=== PATIENT | male | born 1995 | race African-American/Black ===

== ENCOUNTER 2018-09-27 23:34 | Emergency (ER) | payer SELFPAY ==
[2018-09-28] MEDS ORDERED: QUETIAPINE FUMARATE 100 MG TABLET PO ONE (00:45)
--- NOTE | 2018-09-28 00:47 | ER Document Report ---
ED General - General Chief Complaint: Suicidal Ideation Stated Complaint: OTHER Time Seen by Provider: 09/27/18 23:55 Notes: Patient is a 23-year-old male without chronic medical problems, presents with complaints of feeling like others can hear his internal dialogue and that he may be having auditory hallucinations. The patient also reports that he has been having suicidal thoughts with a plan to shoot himself but does not currently have access to a firearm. Patient reports that he was seen in the [place] emergency department several months ago, does not recall with what he was diagnosed but was treated with Seroquel and did have improvement of the symptoms similar to what he is having today. He states that he only had a 1 month supply and after it ran out his symptoms did recur and he has not sought follow-up since that time. He denies any alcohol or drug abuse. He denies any prior suicide attempts or psychiatric hospitalizations. Denies any acute medical concerns. He is presenting with his mother. Nothing has improved or worsened his current symptoms since onset. TRAVEL OUTSIDE OF THE [place] IN LAST 30 DAYS: No - Related Data Allergies/Adverse Reactions: No Known Allergies Allergy (Verified 11/15/13 17:41) Past Medical History - General Information source: Patient - Social History Smoking Status: Current Every Day Smoker Frequency of alcohol use: Rare Drug Abuse: None Lives with: Family Family History: Reviewed & Not Pertinent Patient has suicidal ideation: Yes Patient has homicidal ideation: No Renal/ Medical History: Denies: Hx Peritoneal Dialysis - Immunizations Immunizations up to date: Yes Hx Diphtheria, Pertussis, Tetanus Vaccination: Yes Review of Systems - Review of Systems Notes: Constitutional: Negative for fever. HENT: Negative for sore throat. Eyes: Negative for visual changes. Cardiovascular: Negative for chest pain. Respiratory: Negative for shortness of breath. Gastrointestinal: Negative for abdominal pain, vomiting or diarrhea. Genitourinary: Negative for dysuria. Musculoskeletal: Negative for back pain. Skin: Negative for rash. Neurological: Negative for headaches, weakness or numbness. 10 point ROS negative except as marked above and in HPI. Physical Exam - Vital signs Vitals: Temp Pulse Resp BP Pulse Ox 98.1 F 65 16 128/76 H 98 09/27/18 23:42 09/27/18 23:42 09/27/18 23:42 09/27/18 23:42 09/27/18 23:42 Interpretation: Normal Notes: PHYSICAL EXAMINATION: GENERAL: Well-appearing, well-nourished and in no acute distress. HEAD: Atraumatic, normocephalic. EYES: Pupils equal round and reactive to light, extraocular movements intact, sclera anicteric, conjunctiva are normal. ENT: nares patent, oropharynx clear without exudates. Moist mucous membranes. NECK: Normal range of motion, supple without lymphadenopathy LUNGS: Breath sounds clear to auscultation bilaterally and equal. No wheezes rales or rhonchi. HEART: Regular rate and rhythm without murmurs ABDOMEN: Soft, nontender, normoactive bowel sounds. No guarding, no rebound. No masses appreciated. EXTREMITIES: Normal range of motion, no pitting or edema. No cyanosis. NEUROLOGICAL: No focal neurological deficits. Moves all extremities spontaneously and on command. PSYCH: Poor eye contact. Depressed mood. Appropriate insight. SKIN: Warm, Dry, normal turgor, no rashes or lesions noted. Course - Re-evaluation Re-evalutation: 09/28/18 00:46 Patient presents with paranoia about the ability of others to hear his internal thoughts, possible auditory hallucinations, suicidal ideation without a specific means of completion although does state that he has plan to do so via a firearm. Patient denies any acute medical complaints. States he was seen and treated for similar several months ago, had improvement with Seroquel and will receive a dose here in the emergency department. He has been placed on a hold as I do believe that he needs to remain in the emergency department for further evaluation. He denies acute medical complaints and is otherwise medically cleared for evaluation and disposition by [facility] in the morning. 09/28/18 03:20 Medical screening labs unremarkable. Patient is cleared for evaluation and disposition by [facility] in the morning. - Vital Signs Vital signs: Temp Pulse Resp BP Pulse Ox 98.1 F 65 16 128/76 H 98 09/27/18 23:42 09/27/18 23:42 09/27/18 23:42 09/27/18 23:42 09/27/18 23:42 - Laboratory Result Diagrams: 09/28/18 00:50 09/28/18 00:50 Laboratory results interpreted by me: 09/28/18 00:50 ALT 14 L Salicylates < 1.0 L Acetaminophen < 10 L - EKG Interpretation by Me Additional EKG results interpreted by me: 09/28/18 03:20 Sinus rhythm. Intermittent PVCs. Rate 53. No ST elevations or depressions. QTC 368. Discharge - Discharge Clinical Impression: Suicidal ideation, Auditory hallucinations Condition: Good Referrals: RADHA CHRISTENSEN PA-C [PHYSICIAN [facility] [employer]] - Follow up as needed
[2018-09-28 01:01] LABS: ABSOLUTE BASOPHILS # (AUTO) 0.1 10^3/uL (0.0-0.2); ABSOLUTE EOSINOPHILS # (AUTO) 0.4 10^3/uL (0.0-0.6); ABSOLUTE LYMPHOCYTES (AUTO) 4.3 10^3/uL (0.5-4.7); ABSOLUTE MONOCYTES (AUTO) 0.9 10^3/uL (0.1-1.4); ABSOLUTE NEUT (AUTO) 4.5 10^3/uL (1.7-8.2); BASOPHILS % (AUTO) 0.8 % (0-2); EOSINOPHILS % (AUTO) 3.8 % (0-6); HEMATOCRIT 45.2 % (37.9-51.0); HEMOGLOBIN 15.7 g/dL (13.5-17.0); LYMPHOCYTES % (AUTO) 42.5 % (13-45); MEAN CORPUSCULAR HEMOGLOBIN 32.4 pg (27.0-33.4); MEAN CORPUSCULAR HGB CONC 34.7 g/dL (32.0-36.0); MEAN CORPUSCULAR VOLUME 93 fl (80-97); MONOCYTES % (AUTO) 8.5 % (3-13); PLATELET COUNT 262 10^3/uL (150-450); RED BLOOD COUNT 4.84 10^6/uL (4.35-5.55); SEGMENTED NEUTROPHILS % (AUTO) 44.4 % (42-78); TOTAL CELLS COUNTED % (AUTO) 100 %; WHITE BLOOD COUNT 10.1 10^3/uL (4.0-10.5)
[2018-09-28 01:13] LABS: ALANINE AMINOTRANSFERASE 14 U/L (21-72); ALBUMIN 4.9 g/dL (3.5-5.0); ALKALINE PHOSPHATASE 58 U/L (38-126); ANION GAP 14 (5-19); ASPARTATE AMINO TRANSFERASE 17 U/L (17-59); BILIRUBIN,DIRECT 0.3 mg/dL (0.0-0.4); BILIRUBIN,TOTAL 1.1 mg/dL (0.2-1.3); BLOOD UREA NITROGEN 12 mg/dL (7-20); CALCIUM 9.6 mg/dL (8.4-10.2); CARBON DIOXIDE 28 mmol/L (22-30); CHLORIDE 102 mmol/L (98-107); GLUCOSE 88 mg/dL (75-110); POTASSIUM 4.2 mmol/L (3.6-5.0); SODIUM 143.5 mmol/L (137-145); TOTAL PROTEIN 7.8 g/dL (6.3-8.2)
[2018-09-28 01:14] LABS: ACETAMINOPHEN < 10 ug/mL (10-30); ALCOHOL < 10 mg/dL (NONE DETECTED); SALICYLATE < 1.0 mg/dL (2.0-20.0)
--- NOTE | 2018-09-28 07:24 | EKG REPORT ---
SEVERITY:- OTHERWISE NORMAL ECG - SINUS ARRHYTHMIA, RATE 48-60 : Confirmed by: Colton Atkinson MD 28-Sep-2018 07:23:03
[2018-09-28 07:52] LABS: APPEARANCE,URINE CLEAR; BILIRUBIN,URINE NEGATIVE (NEGATIVE); COLOR,URINE YELLOW; GLUCOSE, URINE NEGATIVE (NEGATIVE); KETONES,URINE NEGATIVE (NEGATIVE); LEUKOCYTE ESTERASE,URINE LARGE (NEGATIVE); NITRITE,URINE NEGATIVE (NEGATIVE); PROTEIN,URINE NEGATIVE (NEGATIVE); URINE SPECIFIC GRAVITY 1.011; UROBILINOGEN,URINE NEGATIVE mg/dL (<2.0)
[2018-09-28 08:16] LABS: URINE BARBITURATES SCREEN NEGATIVE; URINE BENZODIAZEPINES SCREEN NEGATIVE; URINE MARIJUANA (THC) SCREEN UNCONFIRMED POSITIVE; URINE METHADONE SCREEN NEGATIVE; URINE PHENCYCLIDINE SCREEN NEGATIVE
[2018-09-28 08:17] LABS: URINE AMPHETAMINES SCREEN NEGATIVE
[2018-09-28 09:11] LABS: URINE COCAINE SCREEN NEGATIVE
--- NOTE | 2018-09-28 10:23 | ER Document Report ---
Doctor's Note Notes: 09/28/18 10:22 Rounds: Patient's chart reviewed and patient interviewed. Patient's being evaluated for suicidal thoughts which he says he does not have this morning. Says he also was hearing voices and expressed paranoid thoughts. Vital signs have been normal. Lab showed positive leukocyte esterase and a urine culture has been ordered. Patient appears to be medically stable for transfer or discharge. Leonora Bolanos MD 09/28/18 12:12 Patient is complaining of his right eye bothering him. He says it has been this way since yesterday afternoon. Does not recall getting anything in his eye. Has been rubbing at it a lot. Denies any pain of the eyeball or on the surface of the eye. It has been draining. No fever. No allergies. Patient has injected conjunctiva of the right eye. Clear tearing discharge, but no purulent material noted. Pupils equal round react to light. Palpation of the right eyeball does not reveal any excessive firmness or tenderness to palpation. Patient probably has a conjunctivitis. Going to put him on Polytrim ophthalmic drops, 2 drops every 4 hours while awake. Leonora Bolanos MD
[2018-09-28] MEDS ORDERED: BUSPIRONE HCL 10 MG TABLET PO ONE (10:43)
[2018-09-28] MEDS ORDERED: VENLAFAXINE HCL 37.5 MG CAP.SR.24H PO ONE (10:43)
--- NOTE | 2018-09-28 11:36 | PSYCHOLOGICAL NOTE ---
Psych Note - Psych Note Date seen by psych provider: 09/28/18 Time seen by psych provider: 08:10 Psych Note: Reason for Consult: hallucinations and suicidal ideation Patient is a 23-year-old male without chronic medical problems, presents with complaints of feeling like others can hear his internal dialogue and that he may be having auditory hallucinations. Patient disclosed he arrived to [facility] ED via his mother because he was having thoughts of suicide. He states that he is having those thoughts because he hears voices in his head for "the last week or so." He reports that he hears the voices in his head and it is his own voice. He discloses that most the time is repeating conversations that he previously had, a song or secrets. He reports he is always worried that people can hear his thoughts. He reports that this is happened approximately once before about a year ago. He disclosed that he went to the emergency room and [place] and was given medication however confirms that he did not follow-up with outpatient services and since he did not have a refill did not continue taking medication. Patient is alert and orientated to person, place, time and circumstance. Mood and affect is flat. Patient openly engaged with clinician. Patient endorses passive suicidal ideation i.e. no plans means or intent. Patient denies homicidal ideation. Patient reports concerns of other people hearing his thoughts. Patient also discloses concerns of possible auditory hallucinations however patient is not demonstrating any behaviors indicating he is responding to internal stimuli i.e. organized linear thought processes, good eye contact, and normal conversational speech. Intellectual abilities appear to be average range. Attention and concentration are fair. Insight, judgment, impulse control are fair. Behavior health team contacted [facility] to identify previous medications (pharmacy provided by patient); there are no records of the patient picking up any medications from any [facility] in the [place]. Medication recommendations per [facility]'s contracted psychiatrist Dr. Saida FLORES are as follows Effexor 37.5 mg daily BuSpar 5 mg every morning 10 mg nightly Diagnosis 300.3 (F42) unspecified obsessive-compulsive and related disorder 311 (F32.9) unspecified depression Impression\\plan: Patient is recommended for overnight mental health observation to start medications. Patient does not meet IVC criteria per [place] GS 122C. Patient presents with passive suicidal ideation i.e. no plans means or intent. Patient discloses concern of possible auditory hallucinations however patient's descriptions are not congruent with known manifestations. Patient symptoms are congruent with obsessive and intrusive thoughts. Medication recommendations have been provided. Patient is recommended to follow-up with outpatient mental health services for one-on-one therapeutic interventions to develop coping skills and improve self esteem. Patient will be re-evaluated with probable discharge in the morning. Dr. Clarke was consulted and the care management this patient; attending physician is agreement with recommendations and disposition.
[2018-09-28] MEDS: POLYMYXIN B SULFATE/TMP OPH SOLN (10 ML/ER DISP) OD PRN ×3 (13:31→21:45)
[2018-09-28] MEDS ORDERED: BUSPIRONE HCL 10 MG TABLET PO SCH (22:00)
[2018-09-29] MEDS: POLYMYXIN B SULFATE/TMP OPH SOLN (10 ML/ER DISP) OD PRN (06:44)
[2018-09-29] MEDS ORDERED: BUSPIRONE HCL 10 MG TABLET PO SCH ×2 (08:00)
[2018-09-29] MEDS ORDERED: VENLAFAXINE HCL 37.5 MG CAP.SR.24H PO SCH (10:00)
--- NOTE | 2018-09-29 10:07 | ER Document Report ---
Doctor's Note Notes: 09/29/18 10:06 Rounds: Chart reviewed and patient interviewed. Patient is being evaluated for suicidal thoughts. Yesterday, he said he was no longer having these thoughts, but this morning, he is not sure. Patient also developed what looked like a bacterial conjunctivitis for which she has been started on antibiotic drops, Polytrim. He says his eye feels better. Is still quite injected, but does not appear to be tearing or draining as much. He denies any pain of the eye. Says his vision is normal. Can discern number of fingers held in front of him with the vision in that eye. He says there is no loss of vision. Patient appears to be medically stable for transfer or discharge. Leonora Bolanos MD.
[2018-09-29 10:47] VITALS: BP 139/83
--- NOTE | 2018-09-29 13:52 | PSYCHOLOGICAL NOTE ---
Psych Note - Psych Note Psych Note: Reason for consult: suicidal ideation Clinician conducted check in. Patient is awake and alert and greeted Clinician right away. Patient states that he feels better after an opportunity to rest. Patient states that he had been having suicidal thoughts that started about a week ago. Patient was unable to articulate a timeline or a means to harm himself. Patient denies access to guns or knives. Patient disclosed that he only hears his voice when he's not talking. Patient is not currently hearing his voice as he engages the Clinician. Patient denies any drug or alcohol use. Patient states that he would be interested in an outpatient provider for mental health services. This Clinician provided a resource list to the patient to assist upon discharge. Patient is alert and orientated to person, place, time and circumstance. Mood and affect is flat. Patient openly engaged with clinician. Patient endorses passive suicidal ideation i.e. no plans means or intent. Patient denies homicidal ideation. Patient reports concerns of other people hearing his thoughts. Patient also discloses concerns of possible auditory hallucinations however patient is not demonstrating any behaviors indicating he is responding to internal stimuli i.e. organized linear thought processes, good eye contact, and normal conversational speech. Intellectual abilities appear to be average range. Attention and concentration are fair. Insight, judgment, impulse control are fair. Medication recommendations per [facility]'s contracted psychiatrist Dr. Saida FLORES are as follows Effexor 37.5 mg daily BuSpar 5 mg every morning 10 mg nightly Diagnosis 300.3 (F42) unspecified obsessive-compulsive and related disorder 311 (F32.9) unspecified depression Impression/Plan: Patient is cleared from acute psychiatric services. Patient presents with passive suicidal ideation i.e. no plans means or intent. Patient discloses concern of possible auditory hallucinations however patient's descriptions are not congruent with known manifestations. Patient symptoms are congruent with obsessive and intrusive thoughts. Medication recommendations have been provided. Patient is recommended to follow-up with outpatient mental health services for one-on-one therapeutic interventions to develop coping skills and improve self esteem. Dr. Clarke was consulted and the care management this patient; attending physician is agreement with recommendations and disposition.
== END 2018-09-29 10:47 | disposition home or self-care (01) ==
LOC: ER 23:34
DX: R45.851 Suicidal ideations (principal); R44.0 Auditory hallucinations; H10.89 Other conjunctivitis; F17.200 Nicotine dependence, unspecified, uncomplicated; F42.9 Obsessive-compulsive disorder, unspecified; F32.9 Major depressive disorder, single episode, unspecified
CPT/HCPCS: 93005; 99285; 36415; 87086; 80307 ×4; 85025; 80053; 81001; J3490 ×3

== ENCOUNTER 2020-02-11 17:53 | Emergency (ER) | payer SELFPAY ==
--- NOTE | 2020-02-11 18:39 | ER Document Report ---
ED Medical Screen (RME) - General Chief Complaint: Groin Pain Stated Complaint: GROIN PAIN Time Seen by Provider: 02/11/20 18:32 Mode of Arrival: Ambulatory Information source: Patient Notes: Patient presents with reports of overthinking things. Patient states he does have a history of mental illness although has not been on any medications to treat his anxiety, bipolar and schizophrenia. Review of patient's previous ER visit demonstrates a history only of depression and OCD. Patient without any suicidal homicidal ideation at this time. Patient states that it does feel weird when he urinates. Patient vague when responding to questions during interview. I have greeted and performed a rapid initial assessment of this patient. A comprehensive ED assessment and evaluation of the patient, analysis of test results and completion of the medical decision making process will be conducted by additional ED providers. TRAVEL OUTSIDE OF THE [place] IN LAST 30 DAYS: No - Related Data Allergies/Adverse Reactions: No Known Allergies Allergy (Verified 02/11/20 18:32) Past Medical History Renal/ Medical History: Denies: Hx Peritoneal Dialysis - Immunizations Immunizations up to date: Yes Hx Diphtheria, Pertussis, Tetanus Vaccination: Yes Physical Exam - Vital signs Vitals: Temp Pulse Resp BP Pulse Ox 98.4 F 72 16 132/83 H 98 02/11/20 17:58 02/11/20 17:58 02/11/20 17:58 02/11/20 17:58 02/11/20 17:58 - General General appearance: Appears well, Alert In distress: None Notes: Patient will stare off in various directions and then will make eye contact and smile and then responds vaguely during interview Course - Vital Signs Vital signs: Temp Pulse Resp BP Pulse Ox 98.4 F 72 16 132/83 H 98 02/11/20 17:58 02/11/20 17:58 02/11/20 17:58 02/11/20 17:58 02/11/20 17:58
[2020-02-11 19:13] LABS: ABSOLUTE BASOPHILS # (AUTO) 0.1 10^3/uL (0.0-0.2); ABSOLUTE EOSINOPHILS # (AUTO) 0.3 10^3/uL (0.0-0.6); ABSOLUTE LYMPHOCYTES (AUTO) 3.4 10^3/uL (0.5-4.7); ABSOLUTE MONOCYTES (AUTO) 0.8 10^3/uL (0.1-1.4); ABSOLUTE NEUT (AUTO) 5.5 10^3/uL (1.7-8.2); BASOPHILS % (AUTO) 0.7 % (0-2); HEMATOCRIT 44.6 % (37.9-51.0); HEMOGLOBIN 15.5 g/dL (13.5-17.0); LYMPHOCYTES % (AUTO) 33.4 % (13-45); MEAN CORPUSCULAR HEMOGLOBIN 32.4 pg (27.0-33.4); MEAN CORPUSCULAR HGB CONC 34.7 g/dL (32.0-36.0); MEAN CORPUSCULAR VOLUME 93 fl (80-97); MONOCYTES % (AUTO) 8.3 % (3-13); PLATELET COUNT 253 10^3/uL (150-450); RED BLOOD COUNT 4.77 10^6/uL (4.35-5.55); RED CELL DISTRIBUTION WIDTH 12.4 % (11.5-14.0); SEGMENTED NEUTROPHILS % (AUTO) 54.6 % (42-78); TOTAL CELLS COUNTED % (AUTO) 100 %
[2020-02-11 19:30] LABS: ACETAMINOPHEN < 10 ug/mL (10-30); ALBUMIN 4.3 g/dL (3.5-5.0); ALCOHOL < 10 mg/dL (NONE DETECTED); ALKALINE PHOSPHATASE 78 U/L (38-126); ANION GAP 7 (5-19); ASPARTATE AMINO TRANSFERASE 24 U/L (17-59); BILIRUBIN,DIRECT 0.2 mg/dL (0.0-0.4); BILIRUBIN,TOTAL 0.6 mg/dL (0.2-1.3); BLOOD UREA NITROGEN 12 mg/dL (7-20); CALCIUM 9.4 mg/dL (8.4-10.2); CARBON DIOXIDE 26 mmol/L (22-30); CHLORIDE 104 mmol/L (98-107); GLUCOSE 103 mg/dL (75-110); POTASSIUM 4.4 mmol/L (3.6-5.0); SALICYLATE < 1.0 mg/dL (2.0-20.0); TOTAL PROTEIN 7.3 g/dL (6.3-8.2)
[2020-02-11 19:31] LABS: AMORPHOUS SEDIMENT,URINE TRACE /HPF; APPEARANCE,URINE CLOUDY; BILIRUBIN,URINE NEGATIVE (NEGATIVE); COLOR,URINE YELLOW; GLUCOSE, URINE NEGATIVE (NEGATIVE); KETONES,URINE NEGATIVE (NEGATIVE); LEUKOCYTE ESTERASE,URINE NEGATIVE (NEGATIVE); NITRITE,URINE NEGATIVE (NEGATIVE); PROTEIN,URINE NEGATIVE (NEGATIVE); URINE SPECIFIC GRAVITY 1.016; UROBILINOGEN,URINE NEGATIVE mg/dL (<2.0)
[2020-02-11 19:37] LABS: URINE AMPHETAMINES SCREEN NEGATIVE; URINE BARBITURATES SCREEN NEGATIVE; URINE BENZODIAZEPINES SCREEN NEGATIVE; URINE COCAINE SCREEN NEGATIVE; URINE MARIJUANA (THC) SCREEN NEGATIVE; URINE METHADONE SCREEN NEGATIVE; URINE PHENCYCLIDINE SCREEN NEGATIVE
--- NOTE | 2020-02-11 21:08 | ER Document Report ---
ED General - General Chief Complaint: Psych Problem Stated Complaint: GROIN PAIN Time Seen by Provider: 02/11/20 18:32 Mode of Arrival: Ambulatory Information source: Patient TRAVEL OUTSIDE OF THE [place] IN LAST 30 DAYS: No - HPI Onset: Other - over the last several days Onset/Duration: Gradual Quality of pain: No pain Severity: Moderate Pain Level: 0 Associated symptoms: Other - Depression, Passive SI Exacerbated by: Denies Relieved by: Denies Similar symptoms previously: No Recently seen / treated by doctor: No Notes: 24 year old male with a self reported history of depression, anxiety, and schizophrenia here in the ER for several days of having thoughts and hearing voices telling him to kill himself. The patient has no plan on how he would do this and he tells me he has not tried to kill himself in the past. The patient also has been having burning with urination for the last several weeks. The patient's mother dropped him at the ER since he told her he wanted to seek help. I spoke with the patient's mother on the phone and she confirms the patient has been down and having thoughts of possibly harming himself. The patient used to be on Psych Meds but he is unsure which ones. He thinks he was on Serroquel at one point. The patient thinks he needs to be back on Psych Meds. - Related Data Allergies/Adverse Reactions: No Known Allergies Allergy (Verified 02/11/20 18:32) Past Medical History - General Information source: Patient - according to the patient - Social History Smoking Status: Current Every Day Smoker Frequency of alcohol use: None Drug Abuse: None Family History: Reviewed & Not Pertinent Patient has suicidal ideation: No Patient has homicidal ideation: No Renal/ Medical History: Denies: Hx Peritoneal Dialysis Psychiatric Medical History: Reports: Hx Depression, Hx Schizophrenia - Immunizations Immunizations up to date: Yes Hx Diphtheria, Pertussis, Tetanus Vaccination: Yes Review of Systems - Review of Systems Constitutional: No symptoms reported EENT: No symptoms reported Cardiovascular: No symptoms reported Respiratory: No symptoms reported Gastrointestinal: No symptoms reported Genitourinary: No symptoms reported Male Genitourinary: No symptoms reported Musculoskeletal: No symptoms reported Skin: No symptoms reported Hematologic/Lymphatic: No symptoms reported Neurological/Psychological: Depression, Suicidal ideation - passive without plan -: Yes All other systems reviewed and negative Physical Exam - Vital signs Vitals: Temp Pulse Resp BP Pulse Ox 98.4 F 72 16 132/83 H 98 02/11/20 17:58 02/11/20 17:58 02/11/20 17:58 02/11/20 17:58 02/11/20 17:58 - Notes Notes: GENERAL: Well-appearing, well-nourished and in no acute distress. HEAD: Atraumatic, normocephalic. EYES: Pupils equal round and reactive to light, extraocular movements intact, sclera anicteric, conjunctiva are normal. ENT: Nares patent, oropharynx clear without exudates. Moist mucous membranes. NECK: Normal range of motion, supple without lymphadenopathy or JVD. LUNGS: Breath sounds clear to auscultation bilaterally and equal. No wheezes rales or rhonchi. HEART: Regular rate and rhythm without murmurs, rubs or gallops. ABDOMEN: Soft, nontender, normoactive bowel sounds. No guarding, no rebound. No masses appreciated. EXTREMITIES: Normal range of motion, no pitting or edema. No clubbing or cyanosis. NEUROLOGICAL: Cranial nerves II through XII grossly intact. Normal speech, normal gait. PSYCH: Normal mood, flat affect. Passive SI without a plan. SKIN: Warm, Dry, normal turgor, no rashes or lesions noted. Course - Re-evaluation Re-evalutation: 02/11/20 22:48 The patient is here in the ER for hearing voices and thoughts of wanting to harm himself for the last several days. The patient has also had some burning with urination for several weeks. Patient's UA consistent with possible UTI and STD testing showed Chlamydia. Patient therefore treated with 1g of Azithromycin for treatment of Chlamydia. Patient is medically cleared and voluntarily waiting on psych evaluation in the AM. - Vital Signs Vital signs: Temp Pulse Resp BP Pulse Ox 97.9 F 58 L 16 141/77 H 100 02/11/20 21:51 02/11/20 21:51 02/11/20 21:51 02/11/20 21:51 02/11/20 21:51 - Laboratory Result Diagrams: 02/11/20 18:45 02/11/20 18:45 Laboratory results interpreted by me: 02/11/20 02/11/20 18:45 19:23 Salicylates < 1.0 L Acetaminophen < 10 L Chlamydia DNA (PCR) DETECTED H - EKG Interpretation by Al EKG shows normal: Sinus rhythm, [place], Intervals, QRS Complexes, ST-T Waves Rate: Normal Rhythm: NSR Discharge - Discharge Clinical Impression: Auditory hallucinations, Chlamydia infection Condition: Stable Disposition: OTHER Instructions: Chlamydia ([facility])
[2020-02-11 21:10] LABS: CHLAM PCR DETECTED (NOT DETECT)
[2020-02-11] MEDS ORDERED: AZITHROMYCIN 250 MG TABLET PO ONE (22:49)
--- NOTE | 2020-02-12 11:28 | EKG REPORT ---
SEVERITY:- ABNORMAL ECG - SINUS RHYTHM ST ELEV, PROBABLE NORMAL EARLY REPOL PATTERN QS COMPLEX IN V2 IS ABNORMAL, VS LEAD PLACEMENT ERROR, : Confirmed by: Colton Atkinson MD 12-Feb-2020 11:28:19
[2020-02-12] MEDS ORDERED: CEFTRIAXONE INJ 250 MG VIAL IM ONE (12:29)
[2020-02-12] MEDS ORDERED: LIDOCAINE 1% INJ (10 MG/ML) 10 ML MDV ONE (12:37)
--- NOTE | 2020-02-12 13:09 | ER Document Report ---
Doctor's Note Notes: 02/12/20 13:07 Progress note: Patient is a 24-year-old -[place] male who was seen here for suicidal ideation. He denies any attempt. Upon reevaluation today, he is awake alert and eating lunch. He is in no acute distress. He states he is feeling better. His demeanor is slightly bizarre but he is otherwise appr opriate. Still admits to some casual suicidal ideations but he follows it with verbalization of no plan. He has been evaluated by psychiatry and the psychiatrist has rescinded his IVC and advised he is stable for discharge from a psychiatric perspective. He has been previously medically cleared. He was found to be positive for chlamydia, was given Zithromax previously, we added 250 mg Rocephin IM. Per psychiatry he will be started on Zyprexa 2.5 mg p.o. twice daily. He will follow-up with [facility] outpatient services for continued care management. Patient is agreement with this plan. Heart: Regular rate and rhythm, lungs clear to auscultation bilaterally. Stable and appropriate for discharge and outpatient follow-up.
[2020-02-12] MEDS ORDERED: OLANZAPINE 2.5 MG TABLET PO ONE (13:11)
--- NOTE | 2020-02-12 13:21 | PSYCHOLOGICAL NOTE ---
Psych Note - Psych Note Date seen by psych provider: 02/12/20 Time seen by psych provider: 08:50 Psych Note: Reason For Consult: Psychosis, Suicidal ideation Patient discloses that he asked his mother to drive him to [facility] ED because of his "racing thoughts." He states that he has been having passive suicidal ideation but denies plans means or intent; "goes through my mind to kill myself but I do not want to ." Patient states that this is chronic and has been going on for over 2 months. He states he would like help with focusing. He is unable to identify any specific trigger that caused the patient to decide to ask for assistance last night versus any other day over the last 2 months. Patient states he has been inpatient psychiatric treatment previously however is been over a year and has not followed up with outpatient mental health services. Patient is alert and orientated to person, place, time and circumstance. Mood is overall euthymic with congruent affect. Patient reports passive suicidal ideation (ie no plans means or intent) He denies homicidal ideation. Delusions are absent and behaviors congruent with an intact reality based presentation ie organized and linear thought process. Patient reports auditory hallucinations however, patient is not demonstrating any behaviours of responding to internal stimuli ie Eye contact is well-maintained. Conversational speech is within normal rate, tone and prosody. Intellectual abilities appear to be within the average range. Attention and concentration are good. Insight, judgment, impulse control are fair. Medication recommendations per [facility]'s contracted psychiatrist Dr. Saida FLORES are as follows Zyprexa 2.5mg twice daily Impression\\plan: Patient is cleared from acute psychiatric services. Patient came in voluntarily for reported auditory hallucinations that has been chronic for 2 months. He is unable to identify a trigger for coming in. He is able identify that his reported auditory hallucinations are his racing thoughts. He denies he wants to and states he would like assistance with focusing. Medication recommendations have been provided. Patient has a history of noncompliance with outpatient mental health services. Psychoeducation was provided to patient on the importance of following up with services. He was encouraged to engage with medication management and therapeutic services. Dr. Clarke was consulted to care management of this patient; attending physicians in agreement with recommendations and disposition.
[2020-02-12 13:44] VITALS: BP 142/68
== END 2020-02-12 14:18 | disposition home or self-care (01) ==
LOC: ER 17:53
DX: R10.30 Lower abdominal pain, unspecified (principal); F32.9 Major depressive disorder, single episode, unspecified; F41.9 Anxiety disorder, unspecified; F20.9 Schizophrenia, unspecified; F17.200 Nicotine dependence, unspecified, uncomplicated
CPT/HCPCS: 93005; 99284; 96372; 36415; 87086; 80307 ×4; 85025; 80053; 81001; 87491; 87591; 93010; J3490; J0696

== ENCOUNTER 2020-09-16 16:47 | Emergency (ER) | payer SELFPAY ==
[2020-09-16] MEDS ORDERED: DEXAMETHASONE SOD PHOS INJ 10 MG/1 ML VIAL IM ONE (17:32)
--- NOTE | 2020-09-16 17:38 | ER Document Report ---
HPI - HPI Time Seen by Provider: 09/16/20 17:15 Pain Level: Denies Notes: Patient is a 25-year-old male complaining of 3 days of shortness of breath. Reports associated productive cough, runny nose, and enlarging "bumps" on the back of his tongue. He also admits to loss of taste and some chills. He denies any fevers. He states that he has not been around anybody has tested positive for Covid that he knows of. He works at [employer] and initially thought that he may be having an allergic reaction to some of the spices that he inhales at work. Denies fever, nausea, vomiting, fatigue. States that he did have a Covid test last week and it was negative but his symptoms started after he got back the results. His symptoms seem to be the worse when he is at work and exposed to the spices. The patient was evaluated during the global COVID 19 pandemic, and that diagnosis was suspected/considered upon their initial presentation. Their evaluation, treatment, and testing was consistent with current guidelines for patients who present with complaints or symptoms that may be related to COVID-19. - CONSTITUTIONAL Constitutional: REPORTS: Chills. DENIES: Fever - EENT EENT: REPORTS: Sore Throat, Congestion. DENIES: Ear Pain - NEURO Neurology: DENIES: Headache - CARDIOVASCULAR Cardiovascular: DENIES: Chest pain - RESPIRATORY Respiratory: REPORTS: Trouble Breathing, Coughing - GASTROINTESTINAL Gastrointestinal: DENIES: Abdominal Pain, Nausea, Patient vomiting, Diarrhea - MUSCULOSKELETAL Musculoskeletal: REPORTS: Extremity pain - DERM Skin Color: Normal Skin Problems: None Past Medical History - General Information source: Patient - Social History Smoking Status: Current Some Day Smoker Frequency of alcohol use: Social Drug Abuse: None Family History: Reviewed & Not Pertinent Patient has homicidal ideation: No Renal/ Medical History: Denies: Hx Peritoneal Dialysis Psychiatric Medical History: Reports: Hx Depression, Hx Schizophrenia - Immunizations Immunizations up to date: Yes Hx Diphtheria, Pertussis, Tetanus Vaccination: Yes Vertical Provider Document - CONSTITUTIONAL Agree With Documented VS: Yes Exam Limitations: No Limitations General Appearance: WD/WN, No Apparent Distress - INFECTION CONTROL TRAVEL OUTSIDE OF THE [place] IN LAST 30 DAYS: No - HEENT HEENT: Atraumatic, Normocephalic, PERRLA Notes: There is exudate with erythema to the left tonsil. There is no evidence for peritonsillar abscess. The uvula is not edematous. The papule of the tongue are slightly larger than expected but the tongue itself is not edematous or swollen. There is no Florinda's angina. There is no drooling. There is no hot potato voice. Airway is grossly patent. There is no tender lymphadenopathy. - NECK Neck: Normal Inspection, Supple - RESPIRATORY Respiratory: Breath Sounds Normal, No Respiratory Distress. negative: Rales, Rhonchi, Wheezing Notes: Patient with intermittent dry cough - CARDIOVASCULAR Cardiovascular: Regular Rate, Regular Rhythm, No Murmur - GI/ABDOMEN Gastrointestinal: Abdomen Soft, Abdomen Non-Tender, No Organomegaly - BACK Back: Normal Inspection - MUSCULOSKELETAL/EXTREMETIES Musculoskeletal/Extremeties: SUSANNAH KOCH - NEURO Level of Consciousness: Awake, Alert - DERM Integumentary: Warm, Dry, No Rash Course - Re-evaluation Re-evalutation: 09/16/20 18:53 Impression: Cough, sore throat, loss of taste. Patient with some concerning symptoms for possible Covid infection. He has a negative chest x-ray and a negative rapid strep today. He also states that some of the symptoms get worse when he is exposed to the spices at [employer]. It is possible that some of his symptoms are related to that and he has an allergy to some of the spices. He does not have a rash. He is not wheezing and has no diarrhea. He is not dizzy. He does not have tongue or uvular swelling. He has no lip swelling. He is not drooling and his airway is grossly patent. Despite this think it is most prudent to have patient quarantine until Covid results come back. I have advised him of this. Patient was provided with discharge information including: As a person under investigation for COVID-19, [facility] and Human Services, division of public health advises you to adhere to the following guidance until your test results are reported to you. If your test result is positive, you will receive additional information from your provider and your local health department at that time. Remain at home until you are cleared by the healthcare provider public health authorities. Keep a log of visitors to your home and notify any visitors to your home of your isolation status. If you plan to move to a new address or leave the country, notify the local health department and your County. Call your doctor or seek care if you have an urgent medical need. Before seeking medical care, call ahead to get instructions from the provider before arriving at the medical office, clinic, or hospital. Notify them that you are being tested for the virus that causes COVID-19 so that arrangements can be made, as necessary, to prevent transmission to others in the healthcare setting. Next, notify the local health department and your County. If a medical emergency arises and you need to call 911, informed the first responders that you are being tested for the virus that causes COVID-19. Next, notified the local health department and your County. - Vital Signs Vital signs: Temp Pulse Resp BP Pulse Ox 98.6 F 99 15 141/77 H 97 09/16/20 16:54 09/16/20 16:54 09/16/20 16:54 09/16/20 16:54 09/16/20 16:54 - Diagnostic Test Radiology reviewed: Image reviewed, Reports reviewed Discharge - Discharge Clinical Impression: Cough, Sore throat, Loss of taste, Encounter for laboratory testing for COVID- 19 virus Condition: Stable Disposition: HOME, SELF-CARE Instructions: Sore Throat ([facility]) Additional Instructions: Today you were tested for Covid, strep throat, and had an x-ray. X-ray did not show pneumonia and it was normal. Your rapid strep test was negative. Your Covid test will result in the next 3 to 5 days. Please quarantine until you have further information about your test result. Take medicines as prescribed. Return if any worsening symptoms. You were given a steroid shot today. As a person under investigation for COVID-19, [place] department of Health and Human Services, division of public health advises you to adhere to the following guidance until your test results are reported to you. If your test result is positive, you will receive additional information from your provider and your local health department at that time. Remain at home until you are cleared by the healthcare provider public health authorities. Keep a log of visitors to your home and notify any visitors to your home of your isolation status. If you plan to move to a new address or leave the country, notify the local health department and your County. Call your doctor or seek care if you have an urgent medical need. Before seeking medical care, call ahead to get instructions from the provider before arriving at the medical office, clinic, or hospital. Notify them that you are being tested for the virus that causes COVID-19 so that arrangements can be made, as necessary, to prevent transmission to others in the healthcare setting. Next, notify the local health department and your County. If a medical emergency arises and you need to call 911, informed the first responders that you are being tested for the virus that causes COVID-19. Next, notified the local health department and your County. Prescriptions: Benzonatate [Tessalon Perles 100 mg Capsule] 100 mg PO Q8HP PRN #40 capsule PRN Reason: Forms: Return to Work Referrals: [facility] [Provider Group] - Follow up in 1 week [facility] [Provider Group] - Follow up in 1 week
--- NOTE | 2020-09-16 18:23 | RADIOLOGY REPORT (SQ) ---
EXAM DESCRIPTION: CHEST SINGLE VIEW IMAGES COMPLETED DATE/TIME: 09/16/2020 5:00 pm REASON FOR STUDY: SOB, cough COMPARISON: None. EXAM PARAMETERS: NUMBER OF VIEWS: One view. TECHNIQUE: Single frontal radiographic view of the chest acquired. RADIATION DOSE: NA LIMITATIONS: None. FINDINGS: LUNGS AND PLEURA: No opacities, masses or pneumothorax. No pleural effusion. MEDIASTINUM AND HILAR STRUCTURES: No masses. Contour normal. HEART AND VASCULAR STRUCTURES: Heart normal in size. Normal vasculature. BONES: No acute findings. HARDWARE: None in the chest. OTHER: No other significant finding. IMPRESSION: NO ACUTE RADIOGRAPHIC FINDING IN THE CHEST. TECHNICAL DOCUMENTATION: JOB ID: [id number] 2010 [employer]- All Rights Reserved Reading location - IP/workstation name: [email or web address]
[2020-09-16 18:59] VITALS: BP 140/68
== END 2020-09-16 18:59 | disposition home or self-care (01) ==
LOC: ER 16:47
DX: R05 Cough (principal); J02.9 Acute pharyngitis, unspecified; R43.9 Unspecified disturbances of smell and taste; R06.02 Shortness of breath; R09.89 Other specified symptoms and signs involving the circulatory and respiratory systems; R68.83 Chills (without fever); Z20.828 Contact with and (suspected) exposure to other viral communicable diseases; F17.200 Nicotine dependence, unspecified, uncomplicated
CPT/HCPCS: 99284; 96372; 87070; 87880; 87635; 71045; J1100; C9803

== ENCOUNTER → 2020-10-07 | Outpatient (CLI) | payer SELFPAY ==
--- NOTE | 2020-10-07 13:05 | ER RDC ASSESSMENT REPORT ---
Intake - In the Last 14 days Have you traveled outside [place]?: No Have you been in close contact with someone CONFIRMED: Yes Worked in Healthcare?: No - Symptoms Subjective Fever([place] feverish): No Chills: No Muscule Aches: No Runny Nose: No Sore Throat: No Cough (New or worsening chronic cough): No Shortness of breath: No Nausea or Vomiting: No Headache: No Abdominal Pain: No Diarrhea(3 or more loose stools in last 24 hours): No - Do you have any of the following Chronic lung disease: Asthma or emphysema or COPD: No Cystic Fibrosis: No Diabetes: No High Blood Pressure: No Cardiovascular Disease: No Chronic Kidney Disease: No Chronic Liver Disease: No Chronic blood disorder like Sickle Cell Disease: No Weak immune system due to disease or medication: No Neurologic condition that limits movement: No Developmental delay - Moderate to Severe: No Recent (within past 2 weeks) or current : No Morbid Obesity (>100 pounds over ideal weight): No - Objective Temperature: 98.3 F Pulse Rate: 87 Respiratory Rate: 16 Blood Pressure: 132/80 O2 Sat by Pulse Oximetry: 96 Objective: Given above, testing performed: If Testing Performed: Test Specimen Type Sent to General - General Mode of Arrival: Ambulatory Information source: Patient Notes: Patient presents RDC for screening for the coronavirus. Patient was exposed to someone who tested positive recently. - Related Data Allergies/Adverse Reactions: No Known Allergies Allergy (Verified 09/16/20 17:13) Past Medical History - General Information source: Patient - Social History Smoking Status: Current Every Day Smoker Family History: Reviewed & Not Pertinent Renal/ Medical History: Denies: Hx Peritoneal Dialysis Psychiatric Medical History: Reports: Hx Depression, Hx Schizophrenia Surgical Hx: Negative Physical Exam - Notes Notes: The patient was evaluated during the global Covid 19 pandemic, and that diagnosis was suspected/considered upon their initial presentation. Their evaluation, treatment and testing was consistent with current guidelines for patients who present with complaints or symptoms that may be related to Covid 19. Full physical exam could not be performed due to covid 19 isolation protocols. Constitutional: Nontoxic appearance, no acute distress Eyes: Nonicteric, extraocular movements intact, sclera clear ENT: Posterior pharynx without exudates, no tonsillar hypertrophy Cardiovascular: Heart rate and rhythm regular, no JVD Respiratory: Breath sounds clear bilaterally, nonlabored breathing, no use of accessory muscles, no tachypnea Gastrointestinal: Abdomen not distended Muculoskeletal: Moves all extremities well, normal gait Skin: Normal color Neuro: Awake alert oriented, normal speech Psych: Normal mood and affect Diagnostic Results Laboratory Results: Patient presents with exposure worrisome for possible Covid 19. Patient does not have emergency worrying symptoms such as difficulty breathing, shortness of breath, chest pain, pressure, confusion or cyanosis. Patient appears suitable for discharge as they are not of an advanced age, do not have any chronic medical conditions such as diabetes, CAD, immune deficiency, chronic lung disease or chronic kidney disease. Patient's vital signs are stable and patient is nontoxic in appearance. Good return precautions have been discussed with patient, patient verbalized understanding and is agreeable with discharge plan of care at this time. Patient Education/Counseling Counseling/Education: Patient was provided with discharge information including: As a person under investigation for Covid 19, the [facility] of Health and Human Services, division of public health advises you to adhere to the following guidance until your test results are reported to you. If your test result is positive, you will receive additional information from your provider and your local health department at that time. Remain at home until you are cleared by the health provider or public health authorities. Keep a log of visitors to your home, notify any visitors to your home of your isolation status. If you plan to move to a new address or leave the county, notify the local health department in your County. Call your doctor or seek care if you have an urgent medical need. Before seeking medical care, call ahead to get instructions from the provider before arriving at the medical office clinic or hospital. Notify them that you are being tested for the virus that causes Covid 19 so that arrangements can be made, as necessary, to prevent transmission to others in the healthcare setting. Next, notify the local health department in your county. If a medical emergency arises and you need to call 911, inform the first responders that you are being tested for the virus that causes Covid 19. Next, notify the local health department in your county. RDC Discharge - Discharge Clinical Impression: Encounter for screening laboratory testing for COVID-19 virus in asymptomatic patient Condition: Stable Disposition: Home; Selfcare
[2020-10-07 13:06] VITALS: BP 132/80
== END ==
LOC: RDC 12:50
PROVIDERS: ATTEND Nurse Practitioner Family
DX: U07.1 COVID-19 (principal); F17.200 Nicotine dependence, unspecified, uncomplicated
CPT/HCPCS: 87635; 99201; 99211; C9803